=== PATIENT | female | born 1950 | race Caucasian/White ===

== ENCOUNTER 2022-08-01 07:15 | Day surgery (SDC) | payer MEDICARE ==
[2022-07-31 09:16] VITALS: BMI 32.4
[~2022-08-01 07:15] MED LIST: ALPRAZolam 0.25 MG TAB PO PRN; ALPRAZolam 0.5 MG TAB PO PRN; ASPIRIN 325 MG TAB PO PRN; ASPIRIN 81 MG PO PRN; CLOPIDOGREL 75 MG TAB PO PRN; NITROGLYCERIN SL TABS 0.4 MG TAB SUBLINGUAL PRN; SODIUM CHLORIDE 0.9% 1,000 ML in EMPTY BAG 1 BAG IV ONE
[2022-08-01 07:37] VITALS: RESP 18; TEMP 97.8
[2022-08-01 07:38] LABS: Glucose,Whole Blood 91 mg/dL (70-110)
[2022-08-01] MEDS ORDERED: ASPIRIN 81 MG ONE (07:48)
[2022-08-01] MEDS ORDERED: LIDOCAINE 1% INJ 10MG/ML (20 ML MDV) ONE (09:02)
[2022-08-01] MEDS ORDERED: CLOPIDOGREL 75 MG TAB ONE (09:14)
[2022-08-01] MEDS ORDERED: LIDOCAINE 1% INJ 10MG/ML (20 ML MDV) SQ ONE (09:24)
[2022-08-01] MEDS ORDERED: IOPAMIDOL-370 125ML BTL INJ ONE (09:40)
--- NOTE | 2022-08-01 12:03 | IR ---
EXAMINATION TYPE: IR angio carotid cereb BILAT DATE OF EXAM: 08/01/2022 COMPARISON: NONE HISTORY: Fluoroscopy time. Fluoroscopy was provided to the referring clinician.
[2022-08-01 16:29] VITALS: BP 100/66; PULSE 66
--- NOTE | 2022-08-01 20:46 | P.PCN ---
Description of Procedure: DESCRIPTION OF PROCEDURE(S): PROCEDURES PERFORMED: Bilateral selective carotid angiography INDICATION: Carotid artery stenosis HISTORY: Patient is a pleasant 72 year old female with history of CKD, carotid artery stenosis. She has a history of 100% ALFREDO stenosis with CTA concerning for obstructive disease however carotid ultrasound showing more moderate 50-79% stenosis. Therefore recommendations for carotid angiogram were made. CONSENT:I have discussed the risks, benefits and alternative therapies for the above-mentioned procedure and for both sedation/analgesia as well as necessary blood product administration, if indicated, as they pertain to this patient. The patient has indicated understanding and acceptance of the risks and procedures discussed. PROCEDURE: After the risks, benefits and alternatives of the above mentioned procedure explained in detail with the patient, informed consent was obtained. Patient was taken to the catheterization lab and prepped and draped in usual fashion. 1% lidocaine was used to anesthetize the right femoral area. A 6- Urdu sheath was placed in the right femoral artery using modified Seldinger technique. Using VTK catheter the proximal right and left internal carotid arteries were engaged and selective angiography was performed. Angiography showed moderate disease and with 50-60% stenosis at its greatest. Therefore no intervention was recommended. The sheath was left in place and pulled manually. The patient tolerated the procedure well. Patient was transported back to the post catheterization holding area in stable condition. Conscious Sedation: Patient was monitored under the direct supervision of vision of myself for conscious sedation using Versed and fentanyl for a total duration of 17 minutes Right common carotid: no stenosis Right internal carotid artery: 100% proximal right internal carotid artery stenosis Left common carotid: no significant stenosis Left internal carotid artery: proximal left internal carotid artery stenosis with 50-60% stenosis FINAL IMPRESSION: 1. Known 100% right internal carotid artery stenosis with 50-60% left internal carotid artery stenosis. PLAN: 1. Aggressive risk factor modification per most recent ACC/AHA guidelines. 2. Medical therapy and continue to monitor by ultrasound.
== END 2022-08-01 16:56 | disposition home or self-care (01) ==
LOC: CATHCVL 07:15
PROVIDERS: ATTEND Internal Medicine
DX: I65.23 Occlusion and stenosis of bilateral carotid arteries (principal); I12.9 Hypertensive chronic kidney disease with stage 1 through stage 4 chronic kidney disease, or unspecified chronic kidney disease; N18.9 Chronic kidney disease, unspecified; E11.22 Type 2 diabetes mellitus with diabetic chronic kidney disease; I42.9 Cardiomyopathy, unspecified; F32.A Depression, unspecified; I35.1 Nonrheumatic aortic (valve) insufficiency; I25.10 Atherosclerotic heart disease of native coronary artery without angina pectoris; E78.5 Hyperlipidemia, unspecified; Z82.49 Family history of ischemic heart disease and other diseases of the circulatory system; Z79.4 Long term (current) use of insulin; Z79.82 Long term (current) use of aspirin; Z79.899 Other long term (current) drug therapy
CPT/HCPCS: 36224; 99152; C1769 ×4; C1894; J2001; Q9967